=== PATIENT | female | born 1965 | race Caucasian/White ===

== ENCOUNTER 2017-12-11 01:10 | Observation (INO) | payer BC ==
[~2017-12-11] VITALS: Ht 170.2 cm; Wt 101.4 kg
[2017-12-11] VITALS (14 sets, daily range): BP systolic 119–160; BP diastolic 63–86
[2017-12-11] MEDS ORDERED: LISI10TA4 PO (01:31)
[2017-12-11] MEDS ORDERED: CARV-49 PO (01:31)
[2017-12-11] MEDS ORDERED: aspirin 325mg tablet PO ONE (01:45)
[2017-12-11] MEDS ORDERED: mag hydrox/Alum hydrox/simeth 30ml oral suspension PO ONE (01:45)
[2017-12-11 02:04] LABS: PARTIAL THROMBOPLASTIN TIME 27 SECONDS (22-32); PROTHROMBIN TIME 9.9 SECONDS (9.0-12.0)
[2017-12-11 02:09] LABS: ALANINE AMINOTRANSFERASE 27 U/L (12-78); ALBUMIN 3.3 G/DL (3.4-5.0); ALBUMIN/GLOBULIN RATIO 0.8 (1.1-1.5); ALKALINE PHOSPHATASE 76 IU/L (46-116); ANION GAP 12 (8-16); ASPARTATE AMINO TRANSFERASE 23 U/L (10-37); BILIRUBIN,TOTAL 0.2 MG/DL (0.1-1.0); BLOOD UREA NITROGEN 13 MG/DL (7-18); BUN/CREATININE RATIO 15.7 (6.6-38.0); CALCIUM 8.6 MG/DL (8.5-10.1); CHLORIDE 103 MMOL/L (99-107); CREATININE 0.83 MG/DL (0.40-0.90); GLUCOSE 121 MG/DL (70-104); POTASSIUM 3.7 MMOL/L (3.5-5.1); SODIUM 139 MMOL/L (135-145); TOTAL CARBON DIOXIDE 23.7 MMOL/L (24-32); TOTAL PROTEIN 7.2 G/DL (6.4-8.2); eGFR 72 ML/MIN
[2017-12-11 02:10] LABS: BASOPHILS % (AUTO) 0.3 % (0-1); EOSINOPHILS # (AUTO) 0.7 X10'3 (0-0.9); EOSINOPHILS % (AUTO) 6.1 % (0-6); HEMATOCRIT 38.7 % (35.0-45.0); HEMOGLOBIN 13.1 g/dl (12.0-16.0); LYMPHOCYTES % (AUTO) 26.1 % (21-51); MEAN CORPUSCULAR HEMOGLOBIN 29.6 PG (27.0-31.0); MEAN CORPUSCULAR HGB CONC 33.9 % (33.0-36.5); MEAN CORPUSCULAR VOLUME 87.4 FL (78-98); MEAN PLATELET VOLUME 7.5 FL (7.4-10.4); MONOCYTES # (AUTO) 0.8 X10'3 (0-0.9); MONOCYTES % (AUTO) 6.9 % (2-12); NEUTROPHILS % (AUTO) 60.6 % (42-75); PLATELET COUNT 411 X10'3 (140-440); RED BLOOD COUNT 4.43 X10'6 (4.20-5.60); RED CELL DISTRIBUTION WIDTH 15.1 % (11.5-14.5); WHITE BLOOD COUNT 11.5 X10'3 (4.5-11.0)
[2017-12-11] MEDS ORDERED: heparin 10,000 units/1 ML INJ IV ONE (04:00)
[2017-12-11] MEDS: heparin 10,000 units/1 ML INJ IV PRN ×2 (04:35→10:33)
[2017-12-11] MEDS ORDERED: CAFFEINE CITRATE 60 MG/3 ML injection vial IV PRN (04:55)
[2017-12-11] MEDS ORDERED: nitroGLYCERIN 0.4mg SUBLingual tab SL PRN (04:55)
[2017-12-11] MEDS ORDERED: metoprolol tartrate 1mg/ml inj IV PRN (04:55)
[2017-12-11] MEDS ORDERED: regadenoson 0.4mg/5ml syringe IV ONE (04:55)
[2017-12-11 07:20] LABS: BASOPHILS # (AUTO) 0.1 X10'3 (0-0.2); BASOPHILS % (AUTO) 0.6 % (0-1); EOSINOPHILS # (AUTO) 0.5 X10'3 (0-0.9); EOSINOPHILS % (AUTO) 5.5 % (0-6); HEMATOCRIT 36.2 % (35.0-45.0); HEMOGLOBIN 12.5 g/dl (12.0-16.0); LYMPHOCYTES # (AUTO) 2.5 X10'3 (1.1-4.8); LYMPHOCYTES % (AUTO) 26.3 % (21-51); MEAN CORPUSCULAR HEMOGLOBIN 29.6 PG (27.0-31.0); MEAN CORPUSCULAR HGB CONC 34.4 % (33.0-36.5); MONOCYTES # (AUTO) 0.7 X10'3 (0-0.9); MONOCYTES % (AUTO) 6.9 % (2-12); NEUTROPHILS # (AUTO) 5.9 X10'3 (1.8-7.7); NEUTROPHILS % (AUTO) 60.7 % (42-75); PLATELET COUNT 365 X10'3 (140-440); RED BLOOD COUNT 4.21 X10'6 (4.20-5.60); RED CELL DISTRIBUTION WIDTH 14.8 % (11.5-14.5); WHITE BLOOD COUNT 9.6 X10'3 (4.5-11.0)
[2017-12-11] MEDS: pantoprazole 40mg Tablet.DR PO SCH (07:30)
[2017-12-11] MEDS ORDERED: nitroGLYCERIN-Tridil 50MG/D5W 250 ML IV ONE (12:20)
[2017-12-11] MEDS ORDERED: heparin 1,000unit/ml 10ml vial 10 ML ONE (12:21)
[2017-12-11] MEDS ORDERED: iohexol 350 MG/ML 50ML vial IV ONE (12:21)
[2017-12-11] MEDS ORDERED: iohexol 350MG/ML 100ml bottle IV ONE (12:21)
[2017-12-11] MEDS ORDERED: LIDOcaine 1% 30ml preserv. free vial ONE (12:21)
[2017-12-11] MEDS ORDERED: midazolam 2 mg/2 ml injection ONE (13:11)
[2017-12-11] MEDS ORDERED: fentaNYL/PF 50MCG/1 ML 2ML syringe ONE (13:17)
[2017-12-11] MEDS ORDERED: iohexol 350 MG/1 ML 200ml bottle ONE (13:34)
[2017-12-11] MEDS ORDERED: ticagrelor 90mg tablet ONE (13:44)
[2017-12-11] MEDS ORDERED: HYDROcodone/acetaminophen 10/325mg tab PO PRN (14:45)
[2017-12-11] MEDS ORDERED: cyclobenzaprine 10mg tablet PO PRN (14:45)
[2017-12-11] MEDS ORDERED: acetaminophen 325mg tablet PO PRN (14:45)
[2017-12-11] MEDS ORDERED: magnesium hydroxide 30ml (MOM) UD suspension PO PRN (14:45)
[2017-12-11] MEDS ORDERED: OXAZEpam 15mg capsule PO PRN (14:45)
[2017-12-11] MEDS ORDERED: normal saline 1000ml 1,000 ML IV SCH (14:50)
[2017-12-11] MEDS ORDERED: aspirin 81mg tab.chew PO ONE (15:25)
[2017-12-11] MEDS: HYDROcodone/acetaminophen 10/325mg tab PO PRN ×2 (18:50→23:41)
[2017-12-11] MEDS: ticagrelor 90mg tablet PO SCH (21:03)
[2017-12-11] MEDS: carvedilol 6.25mg tablet PO SCH (21:03)
[2017-12-12] VITALS (13 sets, daily range): BP systolic 109–154; BP diastolic 66–84
[2017-12-12 06:52] LABS: HEMATOCRIT 36.1 % (35.0-45.0); MEAN CORPUSCULAR HGB CONC 33.3 % (33.0-36.5); MEAN CORPUSCULAR VOLUME 87.2 FL (78-98); MEAN PLATELET VOLUME 7.4 FL (7.4-10.4); PLATELET COUNT 392 X10'3 (140-440); RED BLOOD COUNT 4.14 X10'6 (4.20-5.60); WHITE BLOOD COUNT 12.1 X10'3 (4.5-11.0)
[2017-12-12 06:53] LABS: BASOPHILS # (AUTO) 0.1 X10'3 (0-0.2); BASOPHILS % (AUTO) 0.5 % (0-1); EOSINOPHILS # (AUTO) 0.3 X10'3 (0-0.9); EOSINOPHILS % (AUTO) 2.6 % (0-6); LYMPHOCYTES # (AUTO) 1.5 X10'3 (1.1-4.8); MONOCYTES # (AUTO) 0.8 X10'3 (0-0.9); MONOCYTES % (AUTO) 6.3 % (2-12); NEUTROPHILS # (AUTO) 9.5 X10'3 (1.8-7.7); NEUTROPHILS % (AUTO) 78.6 % (42-75)
[2017-12-12] MEDS: pantoprazole 40mg Tablet.DR PO SCH (07:30)
[2017-12-12 07:33] LABS: ALANINE AMINOTRANSFERASE 45 U/L (12-78); ALBUMIN/GLOBULIN RATIO 0.8 (1.1-1.5); ALKALINE PHOSPHATASE 68 IU/L (46-116); ANION GAP 9 (8-16); ASPARTATE AMINO TRANSFERASE 68 U/L (10-37); BILIRUBIN,TOTAL 0.5 MG/DL (0.1-1.0); BLOOD UREA NITROGEN 11 MG/DL (7-18); BUN/CREATININE RATIO 16.2 (6.6-38.0); CALCIUM 8.2 MG/DL (8.5-10.1); CHLORIDE 103 MMOL/L (99-107); CHOL/HDL RATIO 5.8 (0.00-4.99); CHOLESTEROL 207 MG/DL (0-200); CREATININE 0.68 MG/DL (0.40-0.90); GLUCOSE 100 MG/DL (70-104); HDL CHOLESTEROL 36 MG/DL (35-60); LDL CHOLESTEROL 150 MG/DL (50-100); POTASSIUM 3.8 MMOL/L (3.5-5.1); SODIUM 137 MMOL/L (135-145); TOTAL CARBON DIOXIDE 25.2 MMOL/L (24-32); TOTAL PROTEIN 6.6 G/DL (6.4-8.2); TRIGLYCERIDES 157 MG/DL (20-135); eGFR > 90 ML/MIN
[2017-12-12] MEDS: ticagrelor 90mg tablet PO SCH (07:40)
[2017-12-12] MEDS: carvedilol 6.25mg tablet PO SCH (07:41)
[2017-12-12] MEDS ORDERED: atorvastatin 20mg tablet PO SCH ×2 (08:00)
[2017-12-12] MEDS ORDERED: lisinopril 10 MG tablet PO SCH (08:00)
[2017-12-12] MEDS ORDERED: aspirin 81mg tab.chew PO SCH (08:00)
[2017-12-12] MEDS ORDERED: CARV6.253 PO (08:40)
[2017-12-12] MEDS ORDERED: ASPI-1265 PO (08:40)
[2017-12-12] MEDS ORDERED: ATOR20TA66 PO (08:40)
[2017-12-12] MEDS ORDERED: LISI10TA4 PO (08:40)
[2017-12-12] MEDS ORDERED: TICA90TA PO (08:40)
== END 2017-12-12 10:04 | disposition home or self-care (01) ==
LOC: ER 01:11 → ED HOLD 04:46 → PCU 3S 05:31 → CICU 2S 14:04
PROVIDERS: ADMIT Emergency Medicine; ATTEND Internal Medicine Cardiovascular Disease
DX: I25.10 Atherosclerotic heart disease of native coronary artery without angina pectoris (principal); I42.9 Cardiomyopathy, unspecified; I21.4 Non-ST elevation (NSTEMI) myocardial infarction; I10 Essential (primary) hypertension; E78.5 Hyperlipidemia, unspecified; F17.210 Nicotine dependence, cigarettes, uncomplicated; E66.9 Obesity, unspecified; M54.2 Cervicalgia; M79.603 Pain in arm, unspecified; K21.9 Gastro-esophageal reflux disease without esophagitis; Z79.82 Long term (current) use of aspirin; Z79.899 Other long term (current) drug therapy; Z82.49 Family history of ischemic heart disease and other diseases of the circulatory system
CPT/HCPCS: 36415; 71045; 80053; 80061; 84484; 85025; 85347; 85610; 85730; 93005; 93306; 93458; 96365; 96366; 96375; 96376; 99285; A6213; A6257; A6449; C1725; C1769; C1874; C9600; G0378; J1644; J2250; J3010; J3490; J7030; Q9967; 99152; 99153; A4620